=== PATIENT | male | born 1965 | race American Indian/Alaskan Native ===

== ENCOUNTER 2016-05-28 16:37 | Emergency (ER) | payer MEDICARE ==
[2016-05-28] MEDS ORDERED: CATAPRES PO ONE (22:05)
[2016-05-28] MEDS ORDERED: NORCO 5/325 PO ONE (22:06)
[2016-05-28] MEDS ORDERED: MOTRIN PO ONE (22:06)
--- NOTE | 2016-05-28 23:24 | Emergency Department Report ---
HPI - General Chief Complaint: Extremity Injury, Lower Time Seen by Provider: 05/28/16 22:05 - HPI HPI: 50-year-old male past medical history gout, osteoarthritis, hypertension presents with complaint of 2 weeks of left-sided knee pain and acute on chronic. Patient states he has had recurrent episodes of gout and has developed osteoarthritis of multiple joints including his knees. Patient denies any fever chills no direct trauma. Patient ambulating with crutches into ED. Patient states that for 2 weeks he has experienced this pain in his left knee and could no longer tolerate pain which is why he came today. No visible signs of trauma on the, no significant swelling. ED Past Medical Hx - Past Medical History Hx Hypertension: Yes Additional medical history: GOUT - Surgical History Past Surgical History?: No - Social History Smoking Status: Current Every Day Smoker Substance Use Type: Alcohol - Medications Home Medications: Home Medications Medication Instructions Recorded Confirmed Last Taken Type HYDROcodone/APAP 5-325 [[place] 1 each PO Q6HR PRN #10 tablet 05/28/16 Unknown Rx 5/325] Naproxen [Naproxen TAB] 250 mg PO BID PRN #25 tablet 05/28/16 Unknown Rx amLODIPine [Norvasc] 5 mg PO DAILY #30 tab 05/28/16 Unknown Rx predniSONE [Deltasone] 40 mg PO QDAY #10 tab 05/28/16 Unknown Rx ED Review of Systems ROS: Stated complaint: LFT KNEE PAIN Other details as noted in HPI Constitutional: denies: chills, fever Eyes: denies: eye pain, eye discharge, vision change ENT: denies: ear pain, throat pain Respiratory: denies: cough, shortness of breath, wheezing Cardiovascular: denies: chest pain, palpitations Endocrine: no symptoms reported Gastrointestinal: denies: abdominal pain, nausea, diarrhea Genitourinary: denies: urgency, dysuria Musculoskeletal: as per HPI, joint swelling, arthralgia (history of gout and osteoarthritis). denies: back pain Skin: denies: rash, lesions Neurological: denies: headache, weakness, paresthesias Psychiatric: denies: anxiety, depression Hematological/Lymphatic: denies: easy bleeding, easy bruising Physical Exam - Physical Exam Vital Signs: Vital Signs 05/28/16 05/28/16 17:33 22:10 Temperature 98.3 F 98.3 F Pulse Rate 105 H 132 H Respiratory 18 18 Rate Blood Pressure 184/120 Blood Pressure 177/104 [Left] O2 Sat by Pulse 100 100 Oximetry General: General: Well appearing, well nourished, appears somewhat uncomfortable. Oriented x 3, normal mood and affect . Ambulating with crutches Head: Normocephalic, atraumatic, no visible or palpable masses, depressions, or scaring. Neck: Supple, without lesions, bruits, or adenopathy, thyroid non-enlarged and non-tender Heart: No cardiomegaly or thrills; regular rate and rhythm, no murmur or gallop Lungs: Clear to auscultation and percussion Abdomen: Bowel sounds normal, no tenderness, organomegaly, masses, or hernia Back: Spine normal without deformity or tenderness, no CVA tenderness Extremities: Minor amount of swelling left knee joint, left knee flexion and extension active and passive fully intact. Distal dorsalis pedis and posterior tibial pulses intact distal sensation intact left lower extremity manzano ankle- foot Neurologic: CN 2-12 normal. Sensation to pain, touch, and proprioception normal. DTRs normalin upper and lower extremities. No pathologic reflexes. ED Course Vital Signs 05/28/16 05/28/16 17:33 22:10 Temperature 98.3 F 98.3 F Pulse Rate 105 H 132 H Respiratory 18 18 Rate Blood Pressure 184/120 Blood Pressure 177/104 [Left] O2 Sat by Pulse 100 100 Oximetry ED Medical Decision Making - Medical Decision Making A/P: Asymptomatic hypertension, osteoarthritis/possible gout flare 1-naproxen when necessary, short course norco, short course prednisone. Knee immobilizer left knee for comfort and support. Patient ambulating well with crutches. 2-patient denies having any chest pain palpitation shortness of breath blurry vision headache nausea vomiting or abdominal pain denies any upper or lower show any paresthesias. Denies any headache. Patient states he had been on amlodipine in the past but has been noncompliant with his hypertension medication. I will restart patient on low-dose amlodipine 3-follow up with primary care and orthopedics. I reinforced the importance of follow-up to the patient especially regarding his osteoarthritis and for management of his hypertension. Critical care attestation.: If time is entered above; I have spent that time in minutes in the direct care of this critically ill patient, excluding procedure time. ED Disposition Clinical Impression: Asymptomatic hypertension Knee pain, chronic Qualifiers: Laterality: left Qualified Code(s): M25.562 - Pain in left knee; G89.29 - Other chronic pain Disposition: DISCHARGED TO HOME OR SELFCARE Is pt being admited?: No Does the pt Need Aspirin: No Condition: Stable Instructions: Hypertension (ED), Osteoarthritis (ED), Acute Gouty Arthritis (ED ), Knee Immobilizer (ED) Additional Instructions: I advised patient to call for follow-up with primary care and orthopedics. Prescriptions: amLODIPine [Norvasc] 5 mg PO DAILY #30 tab HYDROcodone/APAP 5-325 [[place] 5/325] 1 each PO Q6HR PRN #10 tablet PRN Reason: Pain Naproxen [Naproxen TAB] 250 mg PO BID PRN #25 tablet PRN Reason: Pain predniSONE [Deltasone] 40 mg PO QDAY #10 tab Referrals: PRIMARY MD TOM [Primary Care Provider] - 3-5 Days ANN HAMILTON MD [Staff Physician] - 3-5 Days JOHN JENKINS MD [Referring] - 3-5 Days [facility] [Outside] - 3-5 Days Forms: Work/School Release Form(ED) Time of Disposition: 23:25
[2016-05-29 00:01] VITALS: BP 160/100
--- NOTE | 2016-05-29 09:45 | XRay Report ---
LEFT KNEE, 2 VIEWS: HISTORY: Left knee pain, gout. FINDINGS: No comparison. Bone mineralization is within normal limits. [id number] osteoarthritic changes are identified in all 3 compartments. There is near-complete loss of joint space in the medial compartment. No evidence for fracture, bone lesion, osteochondral defect or tophi. There is a large joint effusion on the lateral image. IMPRESSION: Advanced osteoarthritic changes. Joint effusion.
== END 2016-05-29 00:06 | disposition home or self-care (01) ==
LOC: ED 16:37
DX: M25.562 Pain in left knee (principal); G89.29 Other chronic pain; I10 Essential (primary) hypertension; M10.9 Gout, unspecified; F17.200 Nicotine dependence, unspecified, uncomplicated